=== PATIENT | male | born 1995 | race African-American/Black ===

== ENCOUNTER 2022-03-12 21:32 | Emergency (ER) | payer OTHER, SELFPAY ==
--- NOTE | ~2022-03-12 | XR_ITS ---
EXAMINATION: XR chest 2V Exam Date/Time: 03/12/2022 21:50 CDT HISTORY: LT SIDED CHEST PAIN X TODAY, SHARP PAIN, SMOKER, NO HX Comparison: None available. RESULT: Lines, tubes, and devices: None. Lungs and pleura: Clear. Cardiomediastinal silhouette: Normal. Other: No acute osseous or upper abdominal finding. IMPRESSION: No acute cardiopulmonary process. Reviewed, dictated and finalized at location K.
[2022-03-12 21:33] VITALS: BP 158/108; PULSE 99; RESP 16; TEMP 36.6; O2SAT 100
--- NOTE | 2022-03-12 21:38 | ECG_ITS ---
Measurements Intervals [place] Rate: 112 P: 77 IN: 140 QRS: 85 QRSD: 100 T: 44 QT: 360 QTc: 494 Interpretive Statements SINUS TACHYCARDIA BASELINE ARTIFACT BORDERLINE ECG NO PREVIOUS ECG AVAILABLE FOR COMPARISON Electronically Signed On 03-13-2022 12:26:25 CDT by Shawn Kevin M.D.
[2022-03-12 21:48] LABS: Basophils Percent Auto 0.2 % (0.2-1.2); Eosinophils Percent Auto 0.2 % (0-4.4); Hematocrit 44.7 % (42.0-52.0); Hemoglobin 14.6 g/dL (14.0-18.0); Immature Granulocyte Absolute 0.01 K/mm3 (0.00-0.031); Immature Granulocyte Percent A 0.2 % (0-0.5); Lymphocytes Absolute Auto 1.76 K/mm3 (0.9-3.2); Lymphocytes Percent Auto 32.1 % (18.3-44.2); Mean Corpuscular HGB Conc 32.7 g/dl (32-36); Mean Corpuscular Hemoglobin 28.8 pg (26-34); Mean Corpuscular Volume 88.2 fl (80-100); Mean Platelet Volume 9.3 fl (7.4-10.4); Monocytes Absolute Auto 0.6 K/mm3 (0.1-0.6); Monocytes Percent Auto 10.6 % (2.6-8.5); Neutrophils Absolute Auto 3.1 K/mm3 (1.3-6.7); Neutrophils Percent Auto 56.7 % (45.5-73.1); Platelet Count Result 252 k/mm3 (150-375); Red Blood Count 5.07 M/mm3 (4.6-6.20); White Blood Count 5.5 K/mm3 (4.5-10.0)
[2022-03-12 21:58] LABS: Alanine Aminotransferase 24 U/L (6-50); Albumin Level 5.1 g/dL (3.5-5.1); Alkaline Phosphatase 60 U/L (38-126); Anion Gap 11 mmol/L (8-16); Aspartate Amino Transferase 34 U/L (17-59); Bilirubin,Total 3.2 mg/dL (0.2-1.3); Blood Urea Nitrogen 11 mg/dL (9-20); Calcium 9.5 mg/dL (8.4-10.2); Carbon Dioxide 28 mmol/L (22-30); Chloride 99 mmol/L (98-107); Estimated CRCL calculation 80 ml/min; Estimated Glomerular Filt Rate > 60; Glucose 120 mg/dL (65-110); Lipase 59 U/L (23-300); Sodium 138 mmol/L (137-145)
[2022-03-12 21:59] LABS: INR 1.1; Partial Thromboplastin Time 25.2 SECONDS (22.3-36.8)
[2022-03-12 22:10] LABS: Troponin I < 0.012 ng/mL (0.000-0.034)
[2022-03-12 22:51] VITALS: PULSE 77
--- NOTE | 2022-03-12 23:59 | ED.CHESTPAIN ---
HPI - Chest Pain General Chief Complaint: Chest Pain Stated Complaint: high blood pressure Time Seen by Provider: 03/12/22 22:49 History of Present Illness HPI narrative: Patient is a 26-year-old male who presents ER with concerns for chest pain and racing the heart. Reports he began to feel off around 8:30 PM. [place] a brief sharpness left chest. No radiation. Took his blood pressure and noted his heart rate to be elevated in the 120s. No difficulty breathing or diaphoresis. No history of heart disease or arrhythmia. Mother has history of heart disease was concerned and brought him here for evaluation. 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 Did not drink much water today. No dizziness. Symptoms self resolved. Related Data Allergies Allergy/AdvReac Type Severity Reaction Status Date / Time tomato Allergy Unknown Unverified 02/26/14 13:15 Review of Systems Review of Systems: All systems reviewed & are unremarkable except as noted in HPI and below Constitutional: Constitutional: Denies chills and Denies fever(s) Cardiovascular: Cardiovascular: Reports chest pain, Reports rapid heart rate and Denies radiating jaw, neck or arm pain Respiratory: Respiratory: Denies cough and Denies dyspnea Gastrointestinal: Gastrointestinal: Denies abdominal pain, Denies nausea and Denies vomiting Neurologic: Denies focal weakness and Denies numbness PMFSH Past Medical History Medical History (Updated 03/13/22 @ 00:28 by Dio Chong MD) Healthy adult male Surgical History Surgical History (Updated 03/13/22 @ 00:26 by Dio Chong MD) No history of previous surgery Exam Narrative: GENERAL: Well-appearing, well-nourished, and in no acute distress. HEAD: Normocephalic, atraumatic. CHEST: Clear to auscultation. No respiratory distress. HEART: Regular rate and rhythm. Normal peripheral pulses. ABDOMEN: Soft, nontender, nondistended. EXTREMITIES: Normal range of motion. No edema. SKIN: Warm, dry, no rash. NEURO: Alert and oriented x3. PSYCH: Normal mood and affect. Course Course Emergency Course: Patient is mother decided they no longer wait in the ER for discharge for work and opted to walk out without paperwork. I discussed results with patient earlier. Patient received a liter of fluid due to possible dehydration. Vital Signs Vital signs: Vital Signs Temperature 98 F 03/12/22 21:33 Pulse Rate 99 03/12/22 21:33 Respiratory Rate 16 03/12/22 21:33 Blood Pressure 158/108 H 03/12/22 21:33 Pulse Oximetry 100 03/12/22 21:33 Oxygen Delivery Room Air 03/12/22 21:33 Temperature 98 F 03/12/22 21:33 Pulse Rate 77 03/12/22 22:51 Respiratory Rate 16 03/12/22 21:33 Blood Pressure 158/108 H 03/12/22 21:33 Pulse Oximetry 100 03/12/22 21:33 Oxygen Delivery Room Air 03/12/22 21:33 MDM - Chest Pain Lab Data Result diagrams: 03/12/22 21:42 03/12/22 21:42 Labs: Lab Results 03/12/22 03/12/22 03/12/22 Range/Units 21:42 21:42 21:42 WBC 5.5 (4.5-10.0) K/mm3 RBC 5.07 (4.6-6.20) M/mm3 Hgb 14.6 (14.0-18.0) g/dL Hct 44.7 (42.0-52.0) % MCV 88.2 (80-100) fl MCH 28.8 (26-34) pg MCHC 32.7 (32-36) g/dl RDW 12.0 (11.5-14.5) % Plt Count 252 (150-375) k/mm3 MPV 9.3 (7.4-10.4) fl Immature Gran % (Auto) 0.2 (0-0.5) % Neut % (Auto) 56.7 (45.5-73.1) % Lymph % (Auto) 32.1 (18.3-44.2) % [place] % (Auto) 10.6 H (2.6-8.5) % Eos % (Auto) 0.2 (0-4.4) % Baso % (Auto) 0.2 (0.2-1.2) % Lymph # (Auto) 1.76 (0.9-3.2) K/mm3 [place] # (Auto) 0.6 (0.1-0.6) K/mm3 Eos # (Auto) 0.0 (0-0.3) K/mm3 Baso # (Auto) 0.0 (0.0-0.1) K/mm3 Abs Immat Gran (auto) 0.01 (0.00-0.031) K/mm3 Absolute Neuts (auto) 3.1 (1.3-6.7) K/mm3 Absolute Nucleated RBC 0.0 (0.0-0.012) K/mm3 Nucleated RBC % 0.0 (0.0-0.2) % PT 14.0 (11.1-14.7
[2022-03-13 00:23] VITALS: BP 130/78; PULSE 72; RESP 18; O2SAT 98
== END 2022-03-13 00:26 | disposition home or self-care (01) ==
LOC: ANHED 23:38
PROVIDERS: Emergency Provider Emergency Medicine
DX: R07.89 Other chest pain (principal); R00.2 Palpitations; R00.0 Tachycardia, unspecified
CPT/HCPCS: 36415; 71046; 80053; 83690; 84484; 85025; 85610; 85730; 93005; 99284

== ENCOUNTER 2022-06-11 19:15 | Emergency (ER) | payer OTHER, SELFPAY ==
--- NOTE | ~2022-06-11 | XR_ITS ---
EXAMINATION: XR chest 2V Exam Date/Time: 06/11/2022 19:48 CDT HISTORY: STERNAL/LEFT SIDED CHEST PAIN. HX HTN Comparison: 03/12/2022. RESULT: Lines, tubes, and devices: None. Lungs and pleura: Clear. Cardiomediastinal silhouette: Stable. Other: No acute osseous or upper abdominal finding. IMPRESSION: No acute cardiopulmonary process. Reviewed, dictated and finalized at location K.
--- NOTE | 2022-06-11 19:29 | ECG_ITS ---
Measurements Intervals [place] Rate: 62 P: 70 [place]: 142 QRS: 78 QRSD: 104 T: 57 QT: 349 QTc: 356 Interpretive Statements SINUS RHYTHM WITH SINUS ARRHYTHMIA COMPARED TO ECG 03/12/2022 21:38:49 NORMAL ECG SINUS RHYTHM NOW PRESENT SINUS ARRHYTHMIA NOW PRESENT Electronically Signed On 06-11-2022 21:06:06 CDT by Dago Yeh D.O.
[2022-06-11 19:46] VITALS: BP 151/87; PULSE 84; RESP 14; TEMP 36.5; O2SAT 100
[2022-06-11 20:04] LABS: Basophils Percent Auto 0.1 % (0.2-1.2); Eosinophils Percent Auto 0.1 % (0-4.4); Hematocrit 41.3 % (42.0-52.0); Hemoglobin 13.3 g/dL (14.0-18.0); Immature Granulocyte Absolute 0.02 K/mm3 (0.00-0.031); Immature Granulocyte Percent A 0.3 % (0-0.5); Lymphocytes Absolute Auto 1.86 K/mm3 (0.9-3.2); Lymphocytes Percent Auto 27.2 % (18.3-44.2); Mean Corpuscular HGB Conc 32.2 g/dl (32-36); Mean Corpuscular Hemoglobin 29.3 pg (26-34); Mean Platelet Volume 10.3 fl (7.4-10.4); Monocytes Absolute Auto 0.6 K/mm3 (0.1-0.6); Monocytes Percent Auto 9.3 % (2.6-8.5); Neutrophils Absolute Auto 4.3 K/mm3 (1.3-6.7); Platelet Count Result 243 k/mm3 (150-375); Red Blood Count 4.54 M/mm3 (4.6-6.20); Red Cell Distribution Width 12.4 % (11.5-14.5); White Blood Count 6.9 K/mm3 (4.5-10.0)
[2022-06-11 20:11] LABS: Alanine Aminotransferase 18 U/L (6-50); Albumin Level 4.6 g/dL (3.5-5.1); Alkaline Phosphatase 43 U/L (38-126); Anion Gap 10 mmol/L (8-16); Aspartate Amino Transferase 27 U/L (17-59); Bilirubin,Total 1.8 mg/dL (0.2-1.3); Blood Urea Nitrogen 10 mg/dL (9-20); Calcium 9.2 mg/dL (8.4-10.2); Carbon Dioxide 25 mmol/L (22-30); Chloride 102 mmol/L (98-107); Estimated Glomerular Filt Rate > 60; Glucose 99 mg/dL (65-110); Lipase 54 U/L (23-300); Potassium 4.1 mmol/L (3.4-5.0); Sodium 137 mmol/L (137-145)
[2022-06-11 20:14] LABS: INR 1.1; Prothrombin Time 13.9 Seconds (11.1-14.7)
[2022-06-11 20:15] LABS: Partial Thromboplastin Time 23.9 SECONDS (22.3-36.8)
[2022-06-11 20:21] LABS: Troponin I < 0.012 ng/mL (0.000-0.034)
[2022-06-11 23:56] LABS: Troponin I < 0.012 ng/mL (0.000-0.034)
[2022-06-12] MEDS: BELLADONNA ALK/PHENOB ELIX 10 ML, MAG HYDROX/ALUMINUM HYD/SIMETH 30 ML, LIDOCAINE HCL 2... PO (00:19)
--- NOTE | 2022-06-12 00:42 | ED.CHESTPAIN ---
HPI - Chest Pain General Chief Complaint: Chest Pain Stated Complaint: Chest pressure and left arm numbness x 1 day Time Seen by Provider: 06/11/22 23:07 History of Present Illness HPI narrative: 27-year-old male presents emergency room for evaluation of sudden onset of chest pain. States pain is constant and has been present since yesterday. Also endorses an occasional sharp pain that radiates into his left arm, stating this lasts for 1 to 2 seconds. Denies any shortness of breath or difficulty breathing. Denies any nausea or vomiting syncopal episodes. Patient states that he has been evaluated to outside emergency room's for similar situations with, and states that he has been told it is not his heart. Related Data Allergies Allergy/AdvReac Type Severity Reaction Status Date / Time tomato Allergy Unknown Rash Verified 06/11/22 23:44 Review of Systems Review of Systems: CONSTITUTIONAL: Denies fever, chills, or sweats. EYES: Denies visual changes, redness, or discharge. ENT: Denies rhinorrhea, congestion, sore throat, or otalgia. CARDIOVASCULAR: Reports chest pain RESPIRATORY: Denies cough or dyspnea. GASTROINTESTINAL: Denies abdominal pain, nausea, vomiting, or diarrhea. GENITOURINARY: Denies dysuria or hematuria. SKIN: Denies rash or itching. MUSCULOSKELETAL: Denies back pain, joint pain, or myalgia. NEUROLOGIC: Denies headache, numbness, dizziness, or weakness. PSYCHIATRIC: Denies anxiety or depression. PMFSH Past Medical History Medical History Healthy adult male Surgical History Surgical History No history of previous surgery Exam Narrative: GENERAL: Well-appearing, well-nourished, no physical limitations, and in no acute distress. HEAD: Normocephalic, atraumatic. EYES: Conjunctivae normal, PERRLA and EOMI. NECK: Supple. No meningeal signs. No adenopathy or masses. No carotid bruits or JVD CHEST: Clear to auscultation. No respiratory distress. No wheezes rales or rhonchi. HEART: Regular rate and rhythm. No murmur heard. Normal peripheral pulses. ABDOMEN: Soft, nontender, nondistended, normal active bowel sounds. EXTREMITIES: Normal range of motion. No edema. No clubbing or cyanosis SKIN: Warm, dry, no rash. No noted wounds NEURO: No focal deficits. Alert and oriented x3. MAEW. CN's II-XI intact bilaterally, normal gait PSYCH: Cooperative. Normal mood and affect. Course Vital Signs Vital signs: Vital Signs Temperature 36.5 C 06/11/22 19:46 Pulse Rate 84 06/11/22 19:46 Respiratory Rate 14 06/11/22 19:46 Blood Pressure 151/87 H 06/11/22 19:46 Pulse Oximetry 100 06/11/22 19:46 Oxygen Delivery Room Air 06/11/22 19:46 Temperature 36.5 C 06/11/22 19:46 Pulse Rate 84 06/11/22 19:46 Respiratory Rate 14 06/11/22 19:46 Blood Pressure 151/87 H 06/11/22 19:46 Pulse Oximetry 100 06/11/22 19:46 Oxygen Delivery Room Air 06/11/22 19:46 MDM - Chest Pain MDM Narrative Medical decision making narrative: 27-year-old male with no medical problems presents to the emergency room with left-sided chest pain that has been constant for over 24 hours. Patient has had numerous recent cardiac work-ups at other facilities, where he states that it was not cardiac related. Lab work looked reassuring. Patient had a negative troponin delta Trope. EKG showed sinus arrhythmia, no signs of acute ischemia. Chest x-ray showed no cardiopulmonary process. Patient was given a GI cocktail as a trial, states that he achieved some relief of his chest pain with that. Will refer patient to cardiology for further work-up and also recommend possible GI consultation if the cardiac work-up is negative Lab Data Result diagrams: 06/11/22 19:45 06/11/22 19:45 Labs: Lab Results 06/11/22 06/11/22 06/11/22 Range/Units 19:45 19:45 19:45 WBC 6.9 (4.5-10.0) K
[2022-06-12 00:52] VITALS: BP 132/83; PULSE 58; RESP 16; O2SAT 100
== END 2022-06-12 00:55 | disposition home or self-care (01) ==
PROVIDERS: Emergency Medicine; Emergency Provider Nurse Practitioner Family
DX: R07.89 Other chest pain (principal)
CPT/HCPCS: 36415; 71046; 80053; 83690; 84484; 85025; 85610; 85730; 93005; 99284; A9270

== ENCOUNTER 2022-08-12 10:07 | Emergency (ER) | payer OTHER, SELFPAY ==
[2022-08-12 10:16] VITALS: BP 116/76; PULSE 70; RESP 16; TEMP 36.4; O2SAT 100
--- NOTE | 2022-08-12 10:39 | ED.NAVMDI ---
HPI - Nausea/Vomiting/Diarrhea General Chief complaint: Nausea/Vomiting/Diarrhea Stated complaint: bodyaches,nausea Time Seen by Provider: 08/12/22 10:39 Source: patient and RN notes reviewed Mode of arrival: ambulatory Limitations: no limitations History of Present Illness HPI Narrative: 27-year-old male presented for several complaints. He endorses for the last 2 days he had low back pain and constipation. endorses urinary urgency for about 1 week, states is getting better. Patient denies concern for STD. Denies urethral discharge, dysuria, hematuria. Denies known exposure. Also reports heartburn with associated nausea which he gets frequently. He has no diagnosis of reflux, and does not take medication for this. He states reflux is unrelated to food or drink. Patient took a laxative last night with significant relief resulting in loose stool. Currently denies abdominal pain, nausea, vomiting, cough, shortness of breath, fevers or chills. Related Data Home Medications Medication Instructions Recorded Confirmed sertraline 50 mg tablet (Zoloft) 50 mg PO DAILY 08/12/22 08/12/22 Allergies Allergy/AdvReac Type Severity Reaction Status Date / Time tomato Allergy Unknown Rash Verified 08/12/22 10:21 Review of Systems Review of Systems: per HPI All systems reviewed & are unremarkable except as noted in HPI and below PMFSH Past Medical History Medical History Healthy adult male Surgical History Surgical History No history of previous surgery Comments At time of signature, I have reviewed and agree with nursing past medical, surgical, social and family history unless otherwise noted. Please see nursing chart for further information. There is no relevant family history pertinent to the presenting complaint Exam Narrative: GENERAL: Well-appearing, and in no acute distress. EYES: EOMI. Conjunctivae normal. ENT: Mucous membranes pink and moist. CHEST: No respiratory distress. Clear to auscultation. HEART: Regular rate and rhythm. No murmur appreciated. Normal peripheral pulses. ABDOMEN: abd soft, nondistended, normal active bowel sounds. Nontender abdomen; No guarding, rebound tenderness, asymmetry EXTREMITIES: Normal range of motion. No edema. SKIN: Warm, dry, no rash. Capillary refill normal. Normal skin turgor. NEURO: No focal deficits. Alert and oriented x3. PSYCH: Normal affect. Course Course Emergency Course: Patient is aware of diagnosis, understands and agrees to treatment plan. Anticipatory guidance given. Patient agrees to follow-up as directed and is aware of reasons to seek care at the emergency department. Portions of this record may have been created with voice recognition software Level of Care: Express Care Visit Vital Signs Vital signs: Vital Signs Temperature 97.6 F 08/12/22 10:16 Pulse Rate 70 08/12/22 10:16 Respiratory Rate 16 08/12/22 10:16 Blood Pressure 116/76 08/12/22 10:16 Pulse Oximetry 100 08/12/22 10:16 Oxygen Delivery Room Air 08/12/22 10:16 Temperature 97.6 F 08/12/22 10:16 Pulse Rate 70 08/12/22 10:16 Respiratory Rate 16 08/12/22 10:16 Blood Pressure 116/76 08/12/22 10:16 Pulse Oximetry 100 08/12/22 10:16 Oxygen Delivery Room Air 08/12/22 10:16 MDM - Nausea/Vomiting/Diarrhea MDM Narrative Medical decision making narrative: Patient presenting without concern for STD. However he states his girlfriend is treated for UTI and is testing for STD today. Urine specimen collected for GC, chlamydia, trich. Informed Pt will be contacted w/ results when they become available if they are positive. Discussed with patient that it takes up to 7 days for results of cultures to be released and explained that we may treat empirically at this time. Declines treatment at this time and will return should tests be positive. Exam
== END 2022-08-12 11:30 | disposition home or self-care (01) ==
PROVIDERS: Emergency Provider Nurse Practitioner Family
DX: K21.9 Gastro-esophageal reflux disease without esophagitis (principal); K59.00 Constipation, unspecified; S39.012A Strain of muscle, fascia and tendon of lower back, initial encounter; X58.XXXA Exposure to other specified factors, initial encounter; Z20.2 Contact with and (suspected) exposure to infections with a predominantly sexual mode of transmission
CPT/HCPCS: 87491; 87591; 87661; 99213; G0463